=== PATIENT | male | born 1955 | race Hispanic/Latino ===

== ENCOUNTER 2017-11-15 13:07 | Outpatient (CLI) | payer OTHER ==
[2017-11-15 14:35] LABS: Blood Urea Nitrogen 15 mg/dL (9-20)
--- NOTE | 2017-11-16 14:16 | Cat Scan Report ---
CTA ABDOMEN AND PELVIS INDICATION: Abdominal aortic aneurysm. COMPARISON: None similar. FINDINGS: CTA abdomen and pelvis performed following IV contrast. Axial, sagittal and coronal CT reconstructions obtained. LUNG BASES: Coronary calcifications. ABDOMEN: Diffuse fatty hepatic infiltration again noted. Gallbladder surgically absent. Bilateral renal cysts, the largest partly exophytic 4.2 cm off the right lower renal pole while approximately 7 x 6.5 cm on the left, axial image 105, series 2. Spleen, pancreas, adrenals and IVC within normal limits. Nonopacified GI tract evaluation limited, though grossly nonobstructive. Few descending colon diverticuli. Small fat-containing umbilical hernia with a transverse neck of 0.8 cm. Normal appendix. Celiac axis, SMA, MICHELA and single bilateral renal arteries are patent. Atherosclerotic aortoiliac calcifications. A fusiform infrarenal abdominal aortic aneurysm again noted, bulging predominantly off the anterior wall and now measures 5 cm AP x 5.1 cm transverse on axial image 98, series 2, previously 4.2 x 4.4 cm respectively. It is currently 5.4 cm craniocaudal with new nonocclusive mural thrombus anteriorly. Opacified aortic lumen now is approximately 3.2 x 4.2 cm as on axial image 97. PELVIS: Nonaneurysmal bilateral iliac arteries, well opacified. Small prostatic calcifications. Nonopacified urinary bladder suboptimally distended and assessed. Grossly unremarkable seminal vesicles and the rectosigmoid. No free fluid or significant adenopathy. Stable demineralized bones with multilevel spinal degenerative spurring. Mid to lower lumbar facet arthropathy as well. L5-S1 slight vacuum phenomenon and disc narrowing. Right SI joint degenerative spurring more than the left. CONCLUSION: 1. Interval enlargement of infrarenal abdominal aortic aneurysm and development of nonocclusive mural thrombus anteriorly, as described. 2. Various other stable findings as coronary calcifications, fatty liver, absent gallbladder, bilateral renal cysts and diverticulosis, amongst others, as detailed above. I phoned the above results to the requesting physician, 2:00 PM, 11/16/2017. Thank you for the opportunity to participate in this patient's care.
== END 2017-11-15 13:08 | disposition home or self-care (01) ==
LOC: CT 13:07
PROVIDERS: ATTEND Surgery Vascular Surgery
DX: I71.4 Abdominal aortic aneurysm, without rupture (principal)
CPT/HCPCS: 36415; 74174; 82565; 84520; Q9967